=== PATIENT | male | born 1960 | race Caucasian/White ===

== ENCOUNTER 2019-09-28 07:08 | Day surgery (SDC) | payer OTHER ==
[2019-09-28 07:59] VITALS: BMI 28.0
[2019-09-28 09:01] VITALS: TEMP 98.5
[2019-09-28 10:04] VITALS: BP 104/56; PULSE 56
--- NOTE | 2019-10-01 15:25 | PATH ---
Surgical Pathology Report Patient Name: JACK [facility]. Rec. #: [id number] /Age/Gender: 1960 (Age: 59) / M Account: [id number] Location: [facility]-ENDOSCOPY Taken: 09/28/2019 Received: 09/28/2019 Reported: 10/01/2019 Physicians: Maikel Kennedy M.D. Specimen(s) Received A: BX ILEUM B: BX CECUM C: RIGHT COLON D: TRANSVERSE COLON E: DESCENDING COLON, PSEUDOPOLYP F: SIGMOID G: RECTUM Clinical History Ulcerative colitis surveillance, family history of colon cancer Postoperative diagnosis: Quiescent ulcerative colitis, pseudopolyp Final Diagnosis A. ILEUM, BIOPSY: ILEUM MUCOSA WITH REACTIVE LYMPHOID AGGREGATE IN THE LAMINA PROPRIA. NEGATIVE FOR INTRAEPITHELIAL LYMPHOCYTOSIS. B. CECUM, BIOPSY: COLONIC MUCOSA WITH MILD CRYPTAL ARCHITECTURAL DISTORTION. NO HISTOLOGIC EVIDENCE OF ACUTE INFLAMMATION. SEE COMMENT. C. RIGHT COLON, BIOPSY: COLONIC MUCOSA WITH MILD CRYPTAL ARCHITECTURAL DISTORTION AND FOCAL REACTIVE LYMPHOID AGGREGATE. NO HISTOLOGIC EVIDENCE OF ACUTE INFLAMMATION. SEE COMMENT. D. TRANSVERSE COLON, BIOPSY: COLONIC MUCOSA WITH MILD CRYPTAL ARCHITECTURAL DISTORTION AND FOCAL REACTIVE LYMPHOID AGGREGATE. NO HISTOLOGIC EVIDENCE OF ACUTE INFLAMMATION. SEE COMMENT. E. DESCENDING COLON, PSEUDOPOLYP, BIOPSY: COLONIC MUCOSA WITH REACTIVE LYMPHOID FOLLICLE. NO HISTOLOGIC EVIDENCE OF ACUTE INFLAMMATION. SEE COMMENT. F. SIGMOID, BIOPSY: COLONIC MUCOSA WITH MILD CRYPTAL ARCHITECTURAL DISTORTION AND FOCAL REACTIVE LYMPHOID AGGREGATE. NO HISTOLOGIC EVIDENCE OF ACUTE INFLAMMATION. SEE COMMENT. G. RECTUM, BIOPSY: COLONIC MUCOSA WITH MILD CRYPTAL ARCHITECTURAL DISTORTION AND FOCAL REACTIVE LYMPHOID AGGREGATE. NO HISTOLOGIC EVIDENCE OF ACUTE INFLAMMATION. SEE COMMENT. Comment: There is no dysplasia, granuloma, parasite or viral inclusions. The above histologic features in combination with the colonoscopy findings are consistent with a quiescent phase of ulcerative colitis. Suggest clinical correlation. Electronically Signed Jeff Gillis M.D. Gross Description A. Received in formalin, labeled "biopsy ileum" are 4 martinez, irregular portions of soft tissue ranging from 0.2-0.7 cm. in greatest dimension. The specimens are submitted in toto in one cassette. B. Received in formalin, labeled "biopsy cecum" are 4 martinez, irregular portions of soft tissue ranging from 0.2-1.3 cm. in greatest dimension. The specimens are submitted in toto in one cassette. C. Received in formalin, labeled "biopsy right colon" are 4 martinez, irregular portions of soft tissue ranging from 0.3-0.9 cm. in greatest dimension. The specimens are submitted in toto in one cassette. D. Received in formalin, labeled "biopsy transverse colon" are 4 martinez, irregular portions of soft tissue ranging from 0.3-1.0 cm. in greatest dimension. The specimens are submitted in toto in one cassette. E. Received in formalin, labeled "biopsy descending colon and pseudopolyp" are 3 martinez, irregular portions of soft tissue ranging from 0.3-0.7 cm. in greatest dimension. The specimens are submitted in toto in one cassette. F. Received in formalin, labeled "biopsy sigmoid colon" are 4 martinez, irregular portions of soft tissue ranging from 0.3-0.5 cm. in greatest dimension. The specimens are submitted in toto in one cassette. G. Received in formalin, labeled "biopsy rectum" are 3 martinez, irregular portions of soft tissue ranging from 0.3-0.5 cm. in greatest dimension. The specimens are submitted in toto in one cassette. 09/28/2019 saudi09/28/2019
== END 2019-09-28 10:06 | disposition home or self-care (01) ==
LOC: JASU-ENDO 07:08
PROVIDERS: ATTEND Internal Medicine Gastroenterology
PROC: 0DBM8ZX Excision of Descending Colon, Via Natural or Artificial Opening Endoscopic, Diagnostic (ICD-10-PCS; principal; 2019-09-28 08:00)
DX: Z12.11 Encounter for screening for malignant neoplasm of colon (principal); Z86.010 Personal history of colon polyps; Z80.0 Family history of malignant neoplasm of digestive organs; D12.4 Benign neoplasm of descending colon; K64.8 Other hemorrhoids
CPT/HCPCS: 88305-TC